=== PATIENT | male | born 1965 | race Caucasian/White ===

== ENCOUNTER 2024-03-28 17:05 | Emergency (ER) | payer BC ==
[~2024-03-28] VITALS: Ht 187.9 cm; Wt 86.2 kg
[2024-03-28] MEDS ORDERED: Ondansetron Hydrochloride 4 MG TAB PO ONE (17:20)
[2024-03-28] MEDS ORDERED: fentaNYL CITRATE/PF 50 MCG/ML SYRINGE IM ONE (17:20)
[2024-03-28 17:29] LABS: BASO % 0.4 % (0.0-1.0); EOS # 0.1 10*3/uL (0.0-0.4); EOS % 0.5 % (1.0-4.0); HEMATOCRIT 42.6 % (42.0-52.0); LYMPH # 3.3 10*3/uL (1.3-4.4); LYMPH % 32.8 % (27.0-41.0); MEAN CELL VOLUME 93.8 fl (80.0-94.0); MEAN CORPUSCULAR HGB 31.3 pg (27.0-31.0); MEAN CORPUSCULAR HGB CONC 33.3 g/dl (33.0-37.0); MEAN PLATELET VOLUME 10.3 fl (9.6-12.3); MONO # 0.7 10*3/uL (0.1-1.0); MONO % 6.7 % (3.0-9.0); NEUT % 59.1 % (47.0-73.0); PLATELET COUNT AUTOMATED 217 10*3/uL (130-400); RED BLOOD COUNT 4.54 10*6/uL (4.50-5.90); RED CELL DISTRI WIDTH 12.9 % (0-14.5); WHITE BLOOD COUNT 10.2 10*3/uL (4.8-10.8)
[2024-03-28 17:44] LABS: BUN 17 mg/dl (9-23); CHLORIDE 102 mmol/L (98-107); POTASSIUM 3.5 mmol/L (3.4-5.1)
[2024-03-28] MEDS ORDERED: fentaNYL CITRATE/PF 50 MCG/ML SYRINGE IV ONE (17:50)
[2024-03-28] MEDS ORDERED: IOHEXOL 300 MG/ML 100 ML VIAL IV ONE (17:55)
[2024-03-28] MEDS ORDERED: Acetaminophen/Oxycodone 5 MG/325 MG TABLET PO ONE (20:15)
[2024-03-28] MEDS ORDERED: PERCOCET 5-3251 EACH PO (20:17)
== END 2024-03-28 20:32 | disposition home or self-care (01) ==
LOC: ED 17:05
PROVIDERS: Nurse Practitioner
DX: S42.212A Unspecified displaced fracture of surgical neck of left humerus, initial encounter for closed fracture (principal); S52.135A Nondisplaced fracture of neck of left radius, initial encounter for closed fracture; M54.2 Cervicalgia; R50.9 Fever, unspecified; W11.XXXA Fall on and from ladder, initial encounter; Y93.89 Activity, other specified; Y92.89 Other specified places as the place of occurrence of the external cause; Y99.8 Other external cause status